=== PATIENT | male | born 1965 | race Two or more races ===

== ENCOUNTER 2018-11-29 09:39 | Emergency (ER) | payer MEDICAID ==
[~2018-11-29] VITALS: Ht 188 cm; Wt 119.7 kg
--- NOTE | 2018-11-29 09:58 | NUR ---
DR TEE AT BEDSIDE FOR EVAL.
[2018-11-29] MEDS ORDERED: FLUCONAZOLE IN NS 100 MG in PREMIX 1 EA IV SCH ×2 (10:00)
[2018-11-29] MEDS ORDERED: RACEPINEPHRINE HCL 2.25% NEB 0.5 ML VIAL.NEB IH ONE ×2 (10:00→10:15)
[2018-11-29] MEDS ORDERED: DEXAMETHASONE SOD PHOSPHATE 10 MG/ML VIAL IV ONE (10:00)
--- NOTE | 2018-11-29 10:00 | NUR ---
IV LINE STARTED BLOOD DRAWN AND SENT TO LAB.
[2018-11-29] MEDS ORDERED: DEXAMETHASONE SOD PHOSPHATE 10 MG/ML VIAL ONE (10:03)
[2018-11-29] MEDS ORDERED: FLUCONAZOLE (100 MG) 100 MG TABLET ONE (10:04)
[2018-11-29 10:08] LABS: BASOPHILS # (AUTO) 0.1 /CMM (0.0-0.2); BASOPHILS % (AUTO) 0.6 % (0.0-2.0); EOSINOPHILS % (AUTO) 1.1 % (0.0-6.0); HEMATOCRIT 47 % (39-51); LYMPHOCYTES # (AUTO) 2.7 /CMM (0.8-4.8); MEAN CORPUSCULAR HGB CONC 34 g/dl (31.0-36.0); MEAN CORPUSCULAR VOLUME 90 fL (80-96); MONOCYTES # (AUTO) 1.3 /CMM (0.1-1.30); MONOCYTES % (AUTO) 14.2 % (2.0-12.0); NEUTROPHILS # (AUTO) 5.1 /CMM (1.8-8.9); NEUTROPHILS % (AUTO) 55.1 % (43.0-81.0); PLATELET COUNT (AUTO) 271 /CMM (150-450); RED BLOOD CELL COUNT(AUTO) 5.17 MIL/uL (4.5-6.0); WHITE BLOOD COUNT (AUTO) 9.2 K/uL (4.3-11.0)
[2018-11-29 10:10] LABS: ABG BASE EXCESS -0.1 mmol/L; ABG OXYGEN SATURATION 95.8 % (92.0-98.5); ABG PCO2 37.2 mmHg (35.0-45.0); ABG PH 7.426 (7.350-7.450); ABG PO2 79.9 mmHg (75.0-100.0); AaDO2 25.3 mmHg; COHb 6.2 % (0.5-1.5); MetHb 0.4 % (0.0-1.5); O2Hb 89.5 % (94.0-97.0); SITE, ABG Right Radial; VENT MODE, BG ROOM AIR
--- NOTE | 2018-11-29 10:14 | NUR ---
RADIOLOGY AT BEDSIDE FOR CHEST XRAY.
[2018-11-29 10:16] LABS: CALCIUM, SERUM 9.3 mg/dL (8.5-10.1); CARBON DIOXIDE 30 mmol/L (21-32); CHLORIDE 105 mmol/L (98-107); CREATININE 0.8 mg/dL (0.6-1.3); GLUCOSE 145 mg/dL (74-106); POTASSIUM 3.8 mmol/L (3.5-5.1); SODIUM SERUM 143 mmol/L (136-145); UREA NITROGEN, BLOOD 14 mg/dL (7-18)
[2018-11-29 10:30] LABS: ALANINE AMINOTRANSFERASE 43 U/L (12-78); ALBUMIN 3.8 g/dL (3.4-5.0); ALKALINE PHOSPHATASE 100 U/L (46-116); ASPARTATE AMINOTRANSFERASE 21 U/L (15-37); BILIRUBIN,DIRECT 0.1 mg/dL (0.0-0.2); BILIRUBIN,TOTAL 0.7 mg/dL (0.2-1.0); TOTAL PROTEIN, SERUM 7.8 g/dL (6.4-8.2)
[2018-11-29] MEDS ORDERED: IOHEXOL-350 100 ML VIAL IV ONE (10:57)
[2018-11-29] MEDS ORDERED: IV NS 0.9% 250 ML IV ONE ×2 (10:57→12:07)
[2018-11-29] MEDS ORDERED: CT SWABBABLE VALVE TRANS SET 1 EA INFUS.SET MC ONE ×2 (10:57→12:06)
--- NOTE | 2018-11-29 11:00 | NUR ---
PT TO RADIOLOGY FOR CT PULMONARY ANGIO VIA [facility].
[2018-11-29] MEDS ORDERED: IOHEXOL-300 100 ML VIAL IV ONE (12:06)
--- NOTE | 2018-11-29 12:14 | NUR ---
PT TO RADIOLOGY FOR NECK CT SCAN VIA [facility].
--- NOTE | 2018-11-29 13:55 | NUR ---
CALLED [facility] AND SPOKE TO [place] TO REACH A FIELD MARKETING MANAGER. AWAITING A CALL BACK FROM THE FIELD MARKETING MANAGER.
[2018-11-29] MEDS ORDERED: CEFTRIAXONE 1GM BAG (ER ONLY) 50 ML IV ONE (14:00)
[2018-11-29] MEDS ORDERED: CEFTRIAXONE 1GM BAG (ER ONLY) 1 GM/50 ML PIGGYBACK IV ONE (14:00)
--- NOTE | 2018-11-29 14:15 | NUR ---
BRYANT HEALY TALKING TO DR. TEE
--- NOTE | 2018-11-29 14:22 | NUR ---
FAXED CLINICALS TO [employer]
--- NOTE | 2018-11-29 15:07 | NUR ---
SPOKE TO JOSE FRANCISCO FROM [facility]. [facility] BED GIVEN [id number] FELA MCDONALD TO GIVE REPORT. [phone]
--- NOTE | 2018-11-29 15:17 | NUR ---
report given to bossman [facility]illiard [facility]. awaiting transfer ambulance.
[2018-11-29 16:15] VITALS: BP 135/80
--- NOTE | 2018-11-29 16:15 | NUR ---
pt awake. stable vitals at this time. family at bedside.
--- NOTE | 2018-11-29 17:48 | NUR ---
TRANSFERED TO [facility]. STABLE CONDITION.
== END 2018-11-29 17:50 | disposition short-term general hospital (02) ==
LOC: ER 09:39
DX: R06.1 Stridor (principal); R22.1 Localized swelling, mass and lump, neck; R00.0 Tachycardia, unspecified
CPT/HCPCS: 36415; 36600 ×2; 70491; 71045; 71275; 80048; 80076; 82803; 83605; 84484; 85025; 87040 ×2; 93005; 94640; 96365; 96367; 96375; 99291; A4216; J0696; J1100; J1450; J7050 ×2; Q9967 ×2